=== PATIENT | male | born 1955 | race Caucasian/White ===

== ENCOUNTER 2024-08-21 13:15 | Inpatient (IN) | payer OTHER ==
[~2024-08-21] VITALS: Ht 167.6 cm; Wt 88.0 kg
[2024-08-21 14:47] LABS: BASOPHILS % (AUTO) 0.8 % (0.0-2.0); EOSINOPHILS % (AUTO) 2.8 % (1.0-6.0); HEMATOCRIT 49.2 % (41-53); HEMOGLOBIN 16.2 g/dL (13.5-17.5); LYMPHOCYTES # (AUTO) 1.4 K/uL (1.0-4.8); LYMPHOCYTES % (AUTO) 19.5 % (22.0-44.0); MEAN CORPUSCULAR HEMOGLOBIN 30.9 pg (26.0-34.0); MEAN CORPUSCULAR HGB CONC 32.9 G/dL (31.0-37.0); MEAN CORPUSCULAR VOLUME 94 fL (80-100); MONOCYTES # (AUTO) 0.7 K/uL (0.1-1.0); MONOCYTES % (AUTO) 9.6 % (2.0-9.0); NEUTROPHILS # (AUTO) 4.7 K/uL (1.8-7.7); NEUTROPHILS % (AUTO) 67.3 % (40.0-70.0); PLATELET COUNT (AUTO) 297 K/uL (150-450); RED BLOOD CELL COUNT(AUTO) 5.24 MIL/uL (4.50-5.90); RED CELL DISTRIBUTION WIDTH 14.4 % (11.5-14.5); WHITE BLOOD COUNT (AUTO) 6.9 K/uL (4.5-11.0)
[2024-08-21 14:50] LABS: ANION GAP 6 mmol/L (8-16); CALCIUM, TOTAL 8.9 mg/dL (8.8-10.5); CARBON DIOXIDE 29 mmol/L (22-29); CHLORIDE 103 mmol/L (98-107); CREATININE 0.82 mg/dL (0.60-1.30); GLOMERULAR FILTR. RATE CALC > 60 mL/min (>60); GLUCOSE,RANDOM 95 mg/dL (70-110); POTASSIUM 4.3 mmol/L (3.5-5.1); SODIUM SERUM 138 mmol/L (136-145); UREA NITROGEN, BLOOD 18 mg/dL (7-18)
[2024-08-21] MEDS ORDERED: DEXTROSE 50%-WATER 25 GM/50 ML SYRINGE IVP PRN (15:00)
[2024-08-21] MEDS: AmLODIPine BESYLATE 5 MG TABLET PO SCH (15:12)
[2024-08-21 15:53] LABS: INFLUENZA A-RTPCR,COMBO NEGATIVE (NEGATIVE); INFLUENZA B-RTPCR,COMBO NEGATIVE (NEGATIVE); RESPIRATORY SYNCYTIAL VRS-PCR NEGATIVE (NEGATIVE); SARS COVID19 RTPCR, COMBO NEGATIVE (NEGATIVE)
[2024-08-21] MEDS: HEPARIN SODIUM,PORCINE 5,000 UNITS/ML VIAL SQ SCH (16:04)
[2024-08-21] MEDS: CloNIDine HCL 0.1 MG TABLET PO PRN (16:42)
[2024-08-21 17:34] LABS: APPEARANCE,URINE CLEAR (CLEAR); BILIRUBIN,URINE NEGATIVE (NEGATIVE); COLOR,URINE LIGHT YELLOW (YELLOW); GLUCOSE, URINE (UA) NEGATIVE (NEGATIVE); KETONES,URINE NEGATIVE (NEGATIVE); LEUKOCYTE ESTERASE ,URINE NEGATIVE (NEGATIVE); NITRATE,URINE NEGATIVE (NEGATIVE); OCCULT BLOOD,URINE NEGATIVE (NEGATIVE); PROTEIN,URINE TRACE mg/dL (NEGATIVE); SPECIFIC GRAVITIY, URINE 1.022 (1.003-1.030); UROBILINOGEN,URINE <=1.0 mg/dL (<=1.0)
[2024-08-21] MEDS: ACETAMINOPHEN 325 MG TABLET PO PRN (18:34)
[2024-08-21 19:30] VITALS: BP 145/86; PULSE 84; RESP 16; TEMP 97.8; O2SAT 95
[2024-08-21] MEDS: DOCUSATE SODIUM 100 MG CAPSULE PO SCH (22:19)
[2024-08-21 22:40] LABS: GLUCOMETER DEV NAME(LOC) 5N.2C; GLUCOSE,POINT OF CARE 100 MG/DL (70-110)
[2024-08-21 23:45] VITALS: BP 128/88; PULSE 81; RESP 17; TEMP 97.6; O2SAT 96
[2024-08-22 04:15] VITALS: BP 129/80; PULSE 77; RESP 18; TEMP 97.5; O2SAT 95
[2024-08-22 06:07] LABS: HIV 1-2 SCREEN 4TH GEN W/RFLX Non Reactive (Non Reactive)
[2024-08-22 08:00] VITALS: BP 149/87; PULSE 80; RESP 18; TEMP 97.2; O2SAT 94
[2024-08-22] MEDS: FAMOTIDINE 20 MG TABLET PO SCH (09:06)
[2024-08-22 11:55] LABS: GLUCOMETER DEV NAME(LOC) 5N.2C; GLUCOSE,POINT OF CARE 114 MG/DL (70-110)
[2024-08-22 12:00] VITALS: BP 157/88; PULSE 86; RESP 18; TEMP 97.8; O2SAT 94
[2024-08-22] MEDS: INSULIN LISPRO 100 UNITS/ML SQ PRN (12:38)
[2024-08-22 16:00] VITALS: BP 146/86; PULSE 83; RESP 18; TEMP 97.8; O2SAT 94
[2024-08-22 17:45] LABS: GLUCOMETER DEV NAME(LOC) 5N.2C; GLUCOSE,POINT OF CARE 200 MG/DL (70-110)
[2024-08-22 17:45] LABS: GLUCOMETER DEV NAME(LOC) 5N.2C; GLUCOSE,POINT OF CARE 90 MG/DL (70-110)
[2024-08-22 19:38] VITALS: BP 166/92; PULSE 82; RESP 19; TEMP 97.8; O2SAT 92
[2024-08-22 21:35] LABS: GLUCOMETER DEV NAME(LOC) 5N.2C; GLUCOSE,POINT OF CARE 126 MG/DL (70-110)
[2024-08-22 23:19] VITALS: BP 146/82; PULSE 70; RESP 18; TEMP 97.6; O2SAT 95
[2024-08-23 04:43] VITALS: BP 136/83; PULSE 79; RESP 18; TEMP 97.7; O2SAT 96
[2024-08-23 08:00] VITALS: BP 145/77; PULSE 76; RESP 18; TEMP 97.8; O2SAT 95
[2024-08-23 12:00] VITALS: BP 159/90; PULSE 72; RESP 18; TEMP 97.6; O2SAT 98
[2024-08-23 16:00] VITALS: BP 137/78; PULSE 74; RESP 16; TEMP 97.8; O2SAT 98
[2024-08-23 18:53] LABS: MTB PCR w/Rif. Resistance-SPUT NOT DETECTED (Not Detectd)
[2024-08-23 20:08] VITALS: BP 140/69; PULSE 78; RESP 18; TEMP 97.8; O2SAT 96
[2024-08-23 20:20] LABS: GLUCOMETER DEV NAME(LOC) 5N.2C; GLUCOSE,POINT OF CARE 112 MG/DL (70-110)
[2024-08-23 20:20] LABS: GLUCOMETER DEV NAME(LOC) 5N.2C; GLUCOSE,POINT OF CARE 133 MG/DL (70-110)
[2024-08-23 20:21] LABS: GLUCOMETER DEV NAME(LOC) 5N.2C; GLUCOSE,POINT OF CARE 109 MG/DL (70-110)
[2024-08-23 22:30] VITALS: PULSE 71; RESP 20; O2SAT 95
[2024-08-23 22:50] LABS: GLUCOMETER DEV NAME(LOC) 5S.1D; GLUCOSE,POINT OF CARE 131 MG/DL (70-110)
[2024-08-24 05:51] VITALS: BP 172/97; PULSE 71; RESP 20; TEMP 98.4; O2SAT 94
[2024-08-24 08:34] VITALS: BP 150/79; PULSE 72; RESP 18; TEMP 97.6; O2SAT 94
[2024-08-24 11:48] LABS: MTB PCR w/Rif. Resistance-SPUT NOT DETECTED (Not Detectd)
[2024-08-24] MEDS ORDERED: SODIUM CHLORIDE 3% 15 ML NEB SOLUTION NEB ONE (11:50)
[2024-08-24 13:51] LABS: GLUCOMETER DEV NAME(LOC) 6N.1B; GLUCOSE,POINT OF CARE 96 MG/DL (70-110)
[2024-08-24 18:10] LABS: GLUCOMETER DEV NAME(LOC) 6N.1B; GLUCOSE,POINT OF CARE 100 MG/DL (70-110)
[2024-08-24 19:46] LABS: GLUCOMETER DEV NAME(LOC) 5S.1D; GLUCOSE,POINT OF CARE 85 MG/DL (70-110)
[2024-08-24 19:50] VITALS: BP 152/91; PULSE 77; RESP 18; TEMP 98.5; O2SAT 94
[2024-08-24 21:51] LABS: GLUCOMETER DEV NAME(LOC) 4E.2; GLUCOSE,POINT OF CARE 119 MG/DL (70-110)
[2024-08-25 04:42] VITALS: BP 130/81; PULSE 80; RESP 19; TEMP 98; O2SAT 95
[2024-08-25 06:25] LABS: GLUCOMETER DEV NAME(LOC) 5S.1D; GLUCOSE,POINT OF CARE 95 MG/DL (70-110)
[2024-08-25 08:10] VITALS: BP 148/71; PULSE 77; RESP 18; TEMP 98; O2SAT 96
[2024-08-25 11:55] LABS: GLUCOMETER DEV NAME(LOC) 4E.2; GLUCOSE,POINT OF CARE 99 MG/DL (70-110)
[2024-08-25 20:30] VITALS: BP 152/81; PULSE 83; RESP 18; TEMP 98.4; O2SAT 94
[2024-08-25 21:21] LABS: GLUCOMETER DEV NAME(LOC) 4E.2; GLUCOSE,POINT OF CARE 163 MG/DL (70-110)
[2024-08-26 05:31] LABS: GLUCOMETER DEV NAME(LOC) 6N.1B; GLUCOSE,POINT OF CARE 125 MG/DL (70-110)
[2024-08-26 05:58] VITALS: BP 130/84; PULSE 77; RESP 18; TEMP 97.4; O2SAT 94
[2024-08-26 06:05] LABS: GLUCOMETER DEV NAME(LOC) 5S.1D; GLUCOSE,POINT OF CARE 111 MG/DL (70-110)
[2024-08-26 08:12] VITALS: BP 138/80; PULSE 78; RESP 18; TEMP 98.4; O2SAT 96
[2024-08-26 09:07] LABS: QUANTIFERON+, Nil Value 0.08 IU/mL; QUANTIFERON+,Mitogen Value >10.00 IU/mL; QUANTIFERON+,TB1 Antigen Value 0.73 IU/mL; QUANTIFERON+,TB2 Antigen Value 0.44 IU/mL; QUANTIFERON, TB GOLD PLUS Positive (Negative)
[2024-08-26 16:15] VITALS: BP 131/85; PULSE 82; RESP 18; TEMP 98.2; O2SAT 94
[2024-08-26 17:05] LABS: GLUCOMETER DEV NAME(LOC) 5S.1D; GLUCOSE,POINT OF CARE 78 MG/DL (70-110)
[2024-08-26 20:37] VITALS: BP 148/89; PULSE 76; RESP 20; TEMP 97.5; O2SAT 99
[2024-08-26 21:06] LABS: GLUCOMETER DEV NAME(LOC) 4E.2; GLUCOSE,POINT OF CARE 110 MG/DL (70-110)
[2024-08-27 05:32] VITALS: BP 141/84; PULSE 75; RESP 20; TEMP 97.5; O2SAT 96
[2024-08-27 07:11] LABS: GLUCOMETER DEV NAME(LOC) 4E.2; GLUCOSE,POINT OF CARE 132 MG/DL (70-110)
[2024-08-27 07:22] VITALS: BP 140/84; PULSE 78; RESP 20; TEMP 97.5; O2SAT 97
[2024-08-27 12:07] LABS: BASOPHILS % (AUTO) 0.7 % (0.0-2.0); EOSINOPHILS % (AUTO) 3.9 % (1.0-6.0); HEMATOCRIT 53.2 % (41-53); HEMOGLOBIN 17.8 g/dL (13.5-17.5); LYMPHOCYTES # (AUTO) 1.4 K/uL (1.0-4.8); LYMPHOCYTES % (AUTO) 20.6 % (22.0-44.0); MEAN CORPUSCULAR HEMOGLOBIN 31.5 pg (26.0-34.0); MEAN CORPUSCULAR HGB CONC 33.5 G/dL (31.0-37.0); MEAN CORPUSCULAR VOLUME 94 fL (80-100); MONOCYTES # (AUTO) 0.7 K/uL (0.1-1.0); NEUTROPHILS # (AUTO) 4.5 K/uL (1.8-7.7); NEUTROPHILS % (AUTO) 64.8 % (40.0-70.0); PLATELET COUNT (AUTO) 253 K/uL (150-450); RED BLOOD CELL COUNT(AUTO) 5.66 MIL/uL (4.50-5.90); RED CELL DISTRIBUTION WIDTH 14.2 % (11.5-14.5); WHITE BLOOD COUNT (AUTO) 6.9 K/uL (4.5-11.0)
[2024-08-27 12:18] LABS: ANION GAP 7 mmol/L (8-16); CALCIUM, TOTAL 9.2 mg/dL (8.8-10.5); CARBON DIOXIDE 27 mmol/L (22-29); CHLORIDE 101 mmol/L (98-107); CREATININE 0.87 mg/dL (0.60-1.30); GLOMERULAR FILTR. RATE CALC > 60 mL/min (>60); GLUCOSE,RANDOM 90 mg/dL (70-110); POTASSIUM 4.5 mmol/L (3.5-5.1); SODIUM SERUM 135 mmol/L (136-145); UREA NITROGEN, BLOOD 21 mg/dL (7-18)
[2024-08-27 15:34] VITALS: BP 142/78; PULSE 74; RESP 18; TEMP 97.8; O2SAT 95
[2024-08-27 16:15] LABS: GLUCOMETER DEV NAME(LOC) 4E.2; GLUCOSE,POINT OF CARE 83 MG/DL (70-110)
[2024-08-27 20:21] LABS: GLUCOMETER DEV NAME(LOC) 5S.1D; GLUCOSE,POINT OF CARE 108 MG/DL (70-110)
[2024-08-27 20:33] VITALS: BP 137/90; PULSE 92; RESP 20; TEMP 97.8; O2SAT 95
[2024-08-28 00:36] LABS: GLUCOMETER DEV NAME(LOC) 4E.2; GLUCOSE,POINT OF CARE 140 MG/DL (70-110)
[2024-08-28 04:34] VITALS: BP 137/87; PULSE 92; RESP 18; TEMP 97.8; O2SAT 95
[2024-08-28 05:56] LABS: GLUCOMETER DEV NAME(LOC) 6N.1B; GLUCOSE,POINT OF CARE 115 MG/DL (70-110)
[2024-08-28 07:15] LABS: GLUCOMETER DEV NAME(LOC) 6N.1B; GLUCOSE,POINT OF CARE 115 MG/DL (70-110)
[2024-08-28 08:10] VITALS: BP 125/86; PULSE 77; RESP 18; TEMP 97.8; O2SAT 97
[2024-08-28 14:25] LABS: BAND NEUTROPHILS % (MANUAL) 0 % (0-5)
[2024-08-28 14:27] LABS: HEMATOCRIT 51.6 % (41-53); HEMOGLOBIN 17.3 g/dL (13.5-17.5); MEAN CORPUSCULAR HEMOGLOBIN 31.4 pg (26.0-34.0); MEAN CORPUSCULAR HGB CONC 33.6 G/dL (31.0-37.0); MEAN CORPUSCULAR VOLUME 94 fL (80-100); PLATELET COUNT (AUTO) 255 K/uL (150-450); RED BLOOD CELL COUNT(AUTO) 5.52 MIL/uL (4.50-5.90); RED CELL DISTRIBUTION WIDTH 14.3 % (11.5-14.5); WHITE BLOOD COUNT (AUTO) 6.4 K/uL (4.5-11.0)
[2024-08-28 14:42] LABS: ANION GAP 4 mmol/L (8-16); CALCIUM, TOTAL 9.3 mg/dL (8.8-10.5); CARBON DIOXIDE 32 mmol/L (22-29); CHLORIDE 98 mmol/L (98-107); CREATININE 0.98 mg/dL (0.60-1.30); GLOMERULAR FILTR. RATE CALC > 60 mL/min (>60); GLUCOSE,RANDOM 91 mg/dL (70-110); POTASSIUM 4.7 mmol/L (3.5-5.1); SODIUM SERUM 134 mmol/L (136-145); UREA NITROGEN, BLOOD 22 mg/dL (7-18)
[2024-08-28 14:47] LABS: ALANINE AMINOTRANSFERASE 58 U/L (12-78); ALBUMIN 3.4 g/dL (3.4-5.0); ALKALINE PHOSPHATASE 97 U/L (46-116); ASPARTATE AMINOTRANSFERASE 30 U/L (15-37); BILIRUBIN,TOTAL 0.3 mg/dL (0.1-1.0); TOTAL PROTEIN, SERUM 7.6 g/dL (6.4-8.2)
[2024-08-28 14:48] LABS: LYMPHOCYTES % (MANUAL) 24 % (22-44); MONOCYTES % (MANUAL) 5 % (2-9); RBC MORPHOLOGY COMMENT NORMAL RBC MORPH; SEGMENTED NEUTROPHILS % 71 % (40-70); TOTAL CELLS COUNTED 100
[2024-08-28 15:11] VITALS: BP 132/92; PULSE 89; RESP 18; TEMP 98; O2SAT 98
[2024-08-28] MEDS: ETHAMBUTOL HCL 400 MG TABLET PO SCH (16:25)
[2024-08-28] MEDS: PYRAZINAMIDE 500 MG TABLET PO SCH (16:25)
[2024-08-28] MEDS: RIFAMPIN 300 MG CAPSULE PO SCH (16:25)
[2024-08-28] MEDS: ISONIAZID 300 MG TABLET PO SCH (16:25)
[2024-08-28] MEDS: PYRIDOXINE HCL 50 MG TABLET PO SCH (16:25)
[2024-08-28 16:40] LABS: GLUCOMETER DEV NAME(LOC) 6N.1B; GLUCOSE,POINT OF CARE 117 MG/DL (70-110)
[2024-08-28 17:25] LABS: GLUCOMETER DEV NAME(LOC) 4E.2; GLUCOSE,POINT OF CARE 116 MG/DL (70-110)
[2024-08-28 20:05] VITALS: BP 131/79; PULSE 76; RESP 18; TEMP 97.7; O2SAT 94
[2024-08-29 01:31] LABS: GLUCOMETER DEV NAME(LOC) 6N.1B; GLUCOSE,POINT OF CARE 90 MG/DL (70-110)
[2024-08-29 06:05] VITALS: BP 121/70; PULSE 71; RESP 18; TEMP 98; O2SAT 95
[2024-08-29 07:56] LABS: GLUCOMETER DEV NAME(LOC) 4E.2; GLUCOSE,POINT OF CARE 104 MG/DL (70-110)
[2024-08-29 07:58] VITALS: BP 143/85; PULSE 76; RESP 18; TEMP 97.6; O2SAT 91
[2024-08-29 11:45] LABS: GLUCOMETER DEV NAME(LOC) 4E.2; GLUCOSE,POINT OF CARE 96 MG/DL (70-110)
[2024-08-29 15:40] VITALS: BP 150/84; PULSE 92; RESP 18; TEMP 97.8; O2SAT 93
[2024-08-29 19:25] VITALS: BP 147/90; PULSE 91; RESP 18; TEMP 98.2; O2SAT 93
[2024-08-30 04:54] VITALS: BP 131/62; PULSE 74; RESP 18; TEMP 98; O2SAT 93
[2024-08-30 05:55] LABS: GLUCOMETER DEV NAME(LOC) 5S.1D; GLUCOSE,POINT OF CARE 126 MG/DL (70-110)
[2024-08-30 07:35] LABS: GLUCOMETER DEV NAME(LOC) 4E.2; GLUCOSE,POINT OF CARE 91 MG/DL (70-110)
[2024-08-30 07:35] LABS: GLUCOMETER DEV NAME(LOC) 5S.1D; GLUCOSE,POINT OF CARE 94 MG/DL (70-110)
[2024-08-30 08:14] VITALS: BP 139/82; PULSE 78; RESP 20; TEMP 97.7; O2SAT 96
[2024-08-30 19:34] VITALS: BP 150/87; PULSE 85; RESP 20; TEMP 98.2; O2SAT 94
[2024-08-31 03:16] LABS: GLUCOMETER DEV NAME(LOC) 4E.2; GLUCOSE,POINT OF CARE 152 MG/DL (70-110)
[2024-08-31 05:16] VITALS: BP 119/85; PULSE 66; RESP 20; TEMP 97.5; O2SAT 94
[2024-08-31 08:00] VITALS: BP 127/77; PULSE 77; RESP 18; TEMP 98; O2SAT 95
[2024-08-31 10:21] LABS: GLUCOMETER DEV NAME(LOC) 6N.1B; GLUCOSE,POINT OF CARE 113 MG/DL (70-110)
[2024-08-31 10:21] LABS: GLUCOMETER DEV NAME(LOC) 6N.1B; GLUCOSE,POINT OF CARE 105 MG/DL (70-110)
[2024-08-31 13:36] LABS: GLUCOMETER DEV NAME(LOC) 4E.2; GLUCOSE,POINT OF CARE 101 MG/DL (70-110)
[2024-08-31 15:46] VITALS: BP 99/62; PULSE 55; RESP 18; TEMP 97.9; O2SAT 98
[2024-08-31 16:55] LABS: GLUCOMETER DEV NAME(LOC) 6N.1B; GLUCOSE,POINT OF CARE 106 MG/DL (70-110)
[2024-08-31 19:30] VITALS: BP 155/88; PULSE 90; RESP 18; TEMP 97.9; O2SAT 95
[2024-08-31 20:16] LABS: GLUCOMETER DEV NAME(LOC) 6N.1B; GLUCOSE,POINT OF CARE 90 MG/DL (70-110)
[2024-08-31 21:35] LABS: GLUCOMETER DEV NAME(LOC) 6N.1B; GLUCOSE,POINT OF CARE 119 MG/DL (70-110)
[2024-09-01 05:31] VITALS: BP 121/92; PULSE 96; RESP 18; TEMP 97.6; O2SAT 92
[2024-09-01 05:36] LABS: GLUCOMETER DEV NAME(LOC) 5S.1D; GLUCOSE,POINT OF CARE 111 MG/DL (70-110)
[2024-09-01 08:35] VITALS: BP 148/94; PULSE 79; RESP 18; TEMP 98.5; O2SAT 90
[2024-09-01 08:36] VITALS: O2SAT 96
[2024-09-01 12:55] LABS: BASOPHILS % (AUTO) 0.7 % (0.0-2.0); EOSINOPHILS % (AUTO) 3.2 % (1.0-6.0); HEMATOCRIT 53.8 % (41-53); LYMPHOCYTES # (AUTO) 1.8 K/uL (1.0-4.8); LYMPHOCYTES % (AUTO) 24.4 % (22.0-44.0); MEAN CORPUSCULAR HEMOGLOBIN 31.1 pg (26.0-34.0); MEAN CORPUSCULAR HGB CONC 33.4 G/dL (31.0-37.0); MEAN CORPUSCULAR VOLUME 93 fL (80-100); MONOCYTES # (AUTO) 0.6 K/uL (0.1-1.0); MONOCYTES % (AUTO) 8.7 % (2.0-9.0); NEUTROPHILS # (AUTO) 4.6 K/uL (1.8-7.7); PLATELET COUNT (AUTO) 249 K/uL (150-450); RED BLOOD CELL COUNT(AUTO) 5.77 MIL/uL (4.50-5.90); WHITE BLOOD COUNT (AUTO) 7.3 K/uL (4.5-11.0)
[2024-09-01 13:06] LABS: ANION GAP 10 mmol/L (8-16); CALCIUM, TOTAL 9.5 mg/dL (8.8-10.5); CARBON DIOXIDE 26 mmol/L (22-29); CHLORIDE 102 mmol/L (98-107); CREATININE 0.96 mg/dL (0.60-1.30); GLOMERULAR FILTR. RATE CALC > 60 mL/min (>60); GLUCOSE,RANDOM 124 mg/dL (70-110); POTASSIUM 4.5 mmol/L (3.5-5.1); SODIUM SERUM 138 mmol/L (136-145); UREA NITROGEN, BLOOD 25 mg/dL (7-18)
[2024-09-01 13:10] LABS: ALANINE AMINOTRANSFERASE 39 U/L (12-78); ALBUMIN 3.5 g/dL (3.4-5.0); ALKALINE PHOSPHATASE 104 U/L (46-116); ASPARTATE AMINOTRANSFERASE 22 U/L (15-37); BILIRUBIN,TOTAL 0.8 mg/dL (0.1-1.0); TOTAL PROTEIN, SERUM 7.9 g/dL (6.4-8.2)
[2024-09-01 20:14] VITALS: BP 144/88; PULSE 97; RESP 18; TEMP 98.1; O2SAT 94
[2024-09-02 05:00] LABS: GLUCOMETER DEV NAME(LOC) 6N.1B; GLUCOSE,POINT OF CARE 108 MG/DL (70-110)
[2024-09-02 05:49] VITALS: BP 118/71; PULSE 76; RESP 18; TEMP 97.6; O2SAT 94
[2024-09-02 05:56] LABS: GLUCOMETER DEV NAME(LOC) 5S.1D; GLUCOSE,POINT OF CARE 152 MG/DL (70-110)
[2024-09-02 05:56] LABS: GLUCOMETER DEV NAME(LOC) 5S.1D; GLUCOSE,POINT OF CARE 148 MG/DL (70-110)
[2024-09-02 09:54] VITALS: BP 147/80; PULSE 81; RESP 20; TEMP 97.9; O2SAT 93
[2024-09-02 11:41] LABS: GLUCOMETER DEV NAME(LOC) 4E.2; GLUCOSE,POINT OF CARE 115 MG/DL (70-110)
[2024-09-02] MEDS ORDERED: AMLO-257 PO (13:37)
[2024-09-02] MEDS ORDERED: FAMO20 PO (13:38)
[2024-09-02] MEDS ORDERED: ETHA400T25 PO (13:38)
[2024-09-02] MEDS ORDERED: HEPA500018 SQ (13:39)
[2024-09-02] MEDS ORDERED: PYRA500T33 PO (13:40)
[2024-09-02] MEDS ORDERED: ISON300T90 PO (13:40)
[2024-09-02] MEDS ORDERED: PYRI-9 PO (13:41)
[2024-09-02] MEDS ORDERED: RIFA300C63 PO (13:42)
[2024-09-02] MEDS ORDERED: ACET-2247 PO (13:43)
[2024-09-02] MEDS ORDERED: INSU100V SQ (13:44)
[2024-09-02 16:44] VITALS: BP 140/89; PULSE 87; RESP 18; TEMP 97.8; O2SAT 96
[2024-09-02 19:41] LABS: GLUCOMETER DEV NAME(LOC) 4E.2; GLUCOSE,POINT OF CARE 99 MG/DL (70-110)
== END 2024-09-02 18:05 | DRG 179 ==
LOC: EMS 13:22 → UNDOADMIN 14:32 → ICUN 14:32 → EDH 14:35 → 5N 20:15 → 6S 08-23 19:10 → 4E 08-23 21:09 → UNDODISIN 08-31 18:35
PROVIDERS: ADMIT Internal Medicine; ATTEND Internal Medicine
DX: A15.9 Respiratory tuberculosis unspecified (principal); E11.9 Type 2 diabetes mellitus without complications; I10 Essential (primary) hypertension; E66.9 Obesity, unspecified; Z20.822 Contact with and (suspected) exposure to COVID-19; E78.00 Pure hypercholesterolemia, unspecified; I25.10 Atherosclerotic heart disease of native coronary artery without angina pectoris; M10.9 Gout, unspecified; Z83.3 Family history of diabetes mellitus; Z86.11 Personal history of tuberculosis; Z68.31 Body mass index [BMI] 31.0-31.9, adult
CPT/HCPCS: 0241U; 71046; 71250; 80048; 80053; 81003; 82962; 85007; 85025; 85027; 86480; 87015; 87040; 87206; 87389; 87556; 93005; 94640; 99285; G0378; J1644; 36415-L1; 36415-TC